=== PATIENT | male | born 1950 | race African-American/Black ===

== ENCOUNTER 2019-11-17 21:32 | Emergency (ER) | payer MEDICARE, BC ==
[~2019-11-17 21:32] MED LIST: Calcium Chloride 1 GM/10 ML Abboject SYRINGE ONE; EPINEPHrine 1 MG/10 ML Abboject SYRINGE ONE; Sodium Bicarb 50 MEQ/50 ML Abboject 8.4% SYRINGE ONE
== END 2019-11-17 21:45 | disposition expired ==
LOC: ERS 21:32
DX: I46.9 Cardiac arrest, cause unspecified (principal); B34.2 Coronavirus infection, unspecified; E11.9 Type 2 diabetes mellitus without complications; I48.91 Unspecified atrial fibrillation; I50.9 Heart failure, unspecified
CPT/HCPCS: 36556; 36680; 92950; 96374; 96375; J0171